=== PATIENT | female | born 1950 | race Caucasian/White ===

== ENCOUNTER 2024-05-29 18:41 | Observation (INO) ==
[2024-05-29] MEDS ORDERED: ONDANSETRON HCL/PF 4 MG/2 ML VIAL ONE (18:54)
[2024-05-29] MEDS: ONDANSETRON HCL/PF 4 MG/2 ML VIAL IVP ONE (19:05)
--- NOTE | 2024-05-29 19:27 | Emergency Department Note ---
HPI - Fall General Chief Complaint: Fall Stated Complaint: fall Time Seen by Provider: 05/29/24 18:41 Source: patient and EMS Mode of arrival: ambulance History of Present Illness HPI Narrative: 73 y/o female c/o dizziness and fall at home hitting her head on the wall. Patient takes eliquis. Patient states she got dizzy because of all her diarrhea. Patient c/o nausea, vomiting, diarrhea, tailbone pain and lower back pain. no numbness. no bowel/bladder incontinence. no loc. no weakness. no abd pain. MD complaint: Reports fall Onset (ago): hour(s) Fall from: Reports standing Fall witnessed: Reports no Place fall occurred: Reports home Loss of consciousness: none Symptoms prior to fall: Reports dizziness Location of injury: Reports head and other (back, coccyx) Severity: mild-moderate Quality: Reports aching Associated symptoms (after fall): Reports headache and other (lower back pain, coccyx pain) Related Data Home Medications Medication Instructions Recorded Confirmed apixaban 5 mg tablet (Eliquis) 5 mg PO BID 12/02/23 12/02/23 ciclopirox 8 % topical solution 1 applic topical Q7D 12/02/23 12/02/23 gabapentin 100 mg capsule 100 mg PO BID 12/02/23 12/02/23 levothyroxine 100 mcg tablet 100 mcg PO QDAC 12/02/23 12/02/23 losartan 100 1 tab PO DAILY 12/02/23 12/02/23 mg-hydrochlorothiazide 25 mg tablet meloxicam 7.5 mg tablet 7.5 mg PO DAILY PRN pain 12/02/23 12/02/23 omeprazole 20 mg capsule,delayed 20 mg PO BID PRN acid reflux 12/02/23 12/02/23 release pravastatin 40 mg tablet 40 mg PO BEDTIME 12/02/23 12/02/23 prednisone 1 mg tablet 1 mg PO DAILY 12/02/23 12/02/23 propafenone 225 mg tablet 225 mg PO BID 12/02/23 12/02/23 spironolactone 25 mg tablet 25 mg PO DAILY PRN edema 12/02/23 12/02/23 tramadol 50 mg tablet 50 mg PO TID PRN pain 12/02/23 12/02/23 Previous Rx's Medication Instructions Recorded ciprofloxacin HCl 500 mg tablet 500 mg PO Q12H cellulitis #14 tabs 12/02/23 (Cipro) Allergies Allergy/AdvReac Type Severity Reaction Status Date / Time codeine Allergy Verified 05/29/24 19:05 Review of Systems Status of ROS 10 or more systems reviewed and unremark able except as noted in history and below Constitutional Denies: fever or chills Eyes Denies: blurry vision Ears, nose, mouth, and throat Denies: neck pain Cardiovascular Denies: chest pain or shortness of breath with exertion Respiratory Denies: shortness of breath or pain on inspiration Gastrointestinal Reports: nausea and diarrhea; Denies: abdominal pain Genitourinary Denies: painful urination Musculoskeletal Reports: back pain and other (coccyx pain); Denies: neck pain, extremity pain or extremity swelling Neurological Reports: headache; Denies: numbness in extremities or weakness in extremities PFSH PFS Medical History Laceration of right lower leg with infection Fall as cause of accidental injury at home as place of occurrence Cellulitis of right leg without foot Bradycardia Atrial fibrillation Thyroid disease Neuropathy PVD (peripheral vascular disease) Hypertension Surgical History Total knee replacement status Previous section H/O repair of rotator cuff Social History Smoking status: never smoker Within the past year, how often did you have a drink containing alcohol: never Score interpretation: A score less than 3 is consistent with normal alcohol consumption. Non-prescribed substance use: denies use Problems where you live: no known problems Highest level of school completed/degree received: high school Exam Constitutional: normal general appearance and no apparent distress Vital Signs - 24 hr 05/29/24 19:01 Temperature 98.2 F Pulse Rate 56 L Respiratory Rate 18 Blood Pressure 164/91 Pulse Oximetry 98 Oxygen Delivery Me thod Room Air HENMT: normocephalic and head/scalp atraumatic Eyes: PERRL, EOMs intact bilaterally and conjunctivae normal Neck/C-Spine: visual inspection normal, trachea midline, cervical spine nontender and supple Chest: inspection of chest normal and palpation of chest normal Respiratory: breath sounds equal bilaterally, normal respiratory effort and clear to auscultation bilaterally Cardiovascular: normal heart rate noted, regular rhythm noted, no gallop, no rub and no murmur Gastrointestinal: abdomen normal to inspection, abdomen soft to palpation, nontender to palpation and nondistended Back/Pelvis: spine normal to inspection and no thoracic spine tenderness tenderness over lower lumbar paraspinal muscles Extremities: normal to inspection, normal to palpation, no tenderness and full ROM Neurology: no movement abnormality noted, no focal motor deficit noted, speech normal and GCS normal Psychiatry: oriented x3, cooperative and affect normal Skin: skin color normal, no wounds and no lacerations Course Vital Signs Vital signs: Vital Signs Temperature 98.2 F 05/29/24 19:01 Pulse Rate 56 L 05/29/24 19:01 Respiratory Rate 18 05/29/24 19:01 Blood Pressure 164/91 05/29/24 19:01 Pulse Oximetry 98 05/29/24 19:01 Oxygen Delivery Method Room Air 05/29/24 19:01 Temperature 98.2 F 05/29/24 19:01 Pulse Rate 56 L 05/29/24 19:01 Respiratory Rate 18 05/29/24 19:01 Blood Pressure 164/91 05/29/24 19:01 Pulse Oximetry 98 05/29/24 19:01 Oxygen Delivery Method Room Air 05/29/24 19:01 MDM - Fall MDM Narrative Medical decision making narrative: ED documentation: I have reviewed the nursing documentation/vital signs and agree as documented unless otherwise noted. History provided by patient with no limitations in the history. Diagnostics/labs: Reviewed and interpreted as are ordered, pertinent findings no tricia below. I have also personally reviewed any radiographic study as ordered, although it will be formally read by radiology. Differential diagnosis/MDM: A thorough MDM/differential diagnosis with considered based upon the presenting complaints and exam/diagnostic findings to include urgent and emergent pathology, some of which may be mentioned below: Fall, head injury, acute intracranial process, cervical fracture, lumbar fracture, lumbar strain, coccyx fracture, coccydynia Chronic medical conditions impacting care: Atrial Fibrillation taking blood thinners ED course statement: Results and diagnosis were thoroughly discussed with the patient/guardian and their questions were answered to their satisfaction. Patient acknowledges understanding of the results and agrees with the treatment plan. They also understand that all diagnoses cannot be excluded in today's ED visit. Patient Has nausea vomiting diarrhea in the ED. Patient has an elevated lactate. She also has acute on chronic Renal insufficiency likely from dehydration. Treated in the ED with zofran then reglan ivp. IV ns 1L bolus ordered for rehydration. CT abdomen pelvis shows colitis. Cipro ivpb and Flagyl ivpb ordered for Med Surg admission obs. Plan was to admit this patient to med Surg at [facility]. At 2340, nurse informed me that patient now has a fever and blood pressure dropped to 76/40. Patient has sepsis. An additional 1L ns iv bolus ordered, tylenol 975mg po ordered and vancomycin 1g ivpb ordered. Patient's family prefers transfer to [facility]. Spoke with [facility] and Dr. Pires, ED physician, accepts transfer of patient to [facility] ED. Differential Diagnosis Differential diagnosis: Likely other (see above) Lab Data Attestation: I reviewed the patient's lab results. Labs: Lab Results 05/29/24 05/29/24 Range/Units 19:15 19:30 WBC 14.0 H (4.3-9.3) K/uL RBC 4.4 (4.00-5.50) M/uL Hgb 13.9 (12.5-15.8) gm/dL Hct 42.6 (35.9-46.7) % MCV 96.5 H (81.0-93.7) fl MCH 31.4 (27.6-32.2) pg MCHC 32.5 L (33.1-35.3) g/dl RDW 15.2 H (11.4-14.2) % Plt Count 218 (152-353) K/uL MPV 8.0 (6.9-10.8) fl Gran % 91.0 H (47.8-71.3) % Lymph % (Auto) 5.4 L (20.0-43.0) % [place] % (Auto) 2.6 L (3.6-9.8) % Eos % (Auto) 0.6 (0.4-2.8) % Baso % (Auto) 0.4 (0.1-0.85) Lymph # (Auto) 0.8 L (1.1-3.1) [place] # (Auto) 0.4 L (1.1-3.1) Eos # (Auto) 0.1 (0.0-0.2) Baso # (Auto) 0.1 (0.0-0.1) Absolute Gran (auto) 12.8 H (2.3-6.0) Sodium 141 (136-145) mmol/L Potassium 5.1 (3.6-5.2) mmol/L Chloride 106.0 (98-107) mmol/L Carbon Dioxide 27 (21-32) mmol/L Anion Gap 8.0 (4-14) mEq/L BUN 38 H (7-18) mg/dL Creatinine 2.4 H (0.6-1.3) mg/dL Estimated GFR 20.7 (>59.9) Glucose 124 H (70-110) mg/dL Lactic Acid 3.7 H (0.27-1.43) mmol/L Calcium 9.5 (8.5-10.1) mg/dL Total Bilirubin 1.03 H (0.0-1.0) mg/dL AST 20 (15-37) U/L ALT 23 L (30-65) U/L Alkaline Phosphatase 118 (50-136) U/L Troponin I High Sens 16.00 (4.0-60.4) ng/L Total Protein 6.8 (6.4-8.2) g/dL Albumin 3.4 (3.4-5.0) g/dL Stl Occ Bld (IFOB) Scr Positive (Negative) Stool for White Cells Negative (NEGATIVE) C. difficile Screen Negative (NEGATIVE) C. difficile GDH Ag Negative (NEGATIVE) COVID-19 ([place]) Not detected (Not Detectd) Influenza Type A Ag Negative (Negative) Influenza Type B Ag Negative (Negative) Imaging Data Imaging ordered: CT scan - head Attestation: I have reviewed the pertinent imaging results. Radiologist's impression: CT head shows no acute abnormality. CT C-spine shows no acute fracture. CT abdomen pelvis shows colitis. ECG Data Attestation: I personally reviewed and interpreted this ECG as follows: (ECG: NSR, rate 61, no st elevation) ECG interpretation date: 05/29/24 ECG interpretation time: 19:56 Critical Care Time Critical Care Time Critical Care Time: Yes Total Critical Care Time: 60 Attestation: Care time is 60 minutes for this patient. This time includes interpretation of labs, imaging and consultation for transfer patient. Discharge Plan Discharge Patient Disposition: Xfer Short-Term Hosp Condition: Stable Chief Complaint: Fall Clinical Impression: Head injury, Low back pain, Coccydynia, Syncope, Colitis, Acute on chronic renal insufficiency, Acidosis, lactic, Sepsis Time of Disposition: 23:40
[2024-05-29 19:43] LABS: Basophils #(Absolute) Auto 0.1 (0.0-0.1); Basophils%(Percent) Auto 0.4 (0.1-0.85); Eosinophils#(Absolute)Auto 0.1 (0.0-0.2); Eosinophils%(Percent) Auto 0.6 % (0.4-2.8); Granulocytes#(Absolute)- Auto 12.8 (2.3-6.0); Hematocrit 42.6 % (35.9-46.7); Mean Corpuscular Volume 96.5 fl (81.0-93.7); Monocytes #(Absolute)- Auto 0.4 (1.1-3.1); Monocytes %(Percent)- Auto 2.6 % (3.6-9.8); Platelet Count 218 K/uL (152-353)
[2024-05-29 19:51] LABS: Potassium 5.1 mmol/L (3.6-5.2)
[2024-05-29] MEDS ORDERED: 0.9 % SODIUM CHLORIDE 50 ML IV ONE (19:59)
[2024-05-29] MEDS ORDERED: METOCLOPRAMIDE HCL 5 MG/ML VIAL ONE (19:59)
[2024-05-29] MEDS: METOCLOPRAMIDE HCL 5 MG in 0.9 % SODIUM CHLORIDE 50 ML IVP ONE (19:59)
[2024-05-29] MEDS: 0.9 % SODIUM CHLORIDE 1000 ML 1,000 ML IV ONE (20:14)
[2024-05-29] MEDS ORDERED: 0.9 % SODIUM CHLORIDE 1000 ML 1,000 ML IV ONE ×2 (20:14→23:44)
[2024-05-29] MEDS ORDERED: ACETAMINOPHEN 325 MG TABLET PO PRN (22:27)
[2024-05-29] MEDS ORDERED: 0.9 % SODIUM CHLORIDE 1000 ML 1,000 ML IV SCH (22:30)
[2024-05-29] MEDS ORDERED: CIPROFLOXACIN 400 MG/200ML-D5W 400 MG/200 ML PIGGYBACK IV SCH (23:00)
[2024-05-29] MEDS ORDERED: 0.9 % SODIUM CHLORIDE 250 ML IV ONE (23:44)
[2024-05-29] MEDS ORDERED: VANCOMYCIN HCL 1,000 MG VIAL IV ONE (23:45)
[2024-05-29] MEDS: ACETAMINOPHEN 325 MG TABLET PO ONE (23:55)
[2024-05-30] MEDS ORDERED: METRONIDAZOLE 500 MG/100ML-NS 500 MG/100 ML PIGGYBACK IV SCH
[2024-05-30] MEDS ORDERED: ACETAMINOPHEN 325 MG TABLET ONE (00:01)
[2024-05-30] MEDS ORDERED: PIPERACILLIN IV ONE ×2 (00:15→00:24)
[2024-05-30] MEDS ORDERED: TAZOBACTAM IV ONE ×2 (00:15→00:24)
[2024-05-30] MEDS ORDERED: SODIUM CHLORIDE MB 0.9% IV ONE ×2 (00:15→00:24)
[2024-05-30] MEDS: VANCOMYCIN HCL 1,000 MG in 0.9 % SODIUM CHLORIDE 250 ML IV ONE (00:20)
[2024-05-30] MEDS ORDERED: 0.9 % SODIUM CHLORIDE 250 ML IV ONE (00:23)
[2024-05-30] MEDS: 0.9 % SODIUM CHLORIDE 1000 ML 1,000 ML IV ONE (00:30)
[2024-05-30] MEDS: ACETAMINOPHEN 1000 MG/100 ML 750 MG/75 ML IV.SOLN IV ONE (00:45)
[2024-05-30 01:20] LABS: Specific Gravity Urine 1.025 (1.001-1.035); Urine Appearance HAZY (CLEAR); Urine Blood NEGATIVE (NEG - TRACE); Urine Color AMBER (STRAW/YELL.); Urine Urobilinogen Normal (NORMAL)
[2024-05-30 01:50] VITALS: BP 96/54; PULSE 80; RESP 20; TEMP 99.7
[2024-05-30] MEDS ORDERED: PANTOPRAZOLE SODIUM 40 MG TABLET.DR PO SCH (09:00)
[2024-05-30] MEDS ORDERED: ENOXAPARIN SODIUM 100 MG/ML SYRINGE SUBQ SCH (09:00)
== END 2024-05-30 05:56 | disposition short-term general hospital (02) ==
LOC: MS 18:41 → ED 18:41 → MS 05-30 01:00
PROVIDERS: ADMIT Physician Assistant; ATTEND Family Medicine